=== PATIENT | female | born 1985 | race Caucasian/White ===

== ENCOUNTER 2016-12-20 12:36 | Emergency (ER) | payer MEDICAID ==
[~2016-12-20] VITALS: Ht 162.6 cm; Wt 162.7 kg
[2016-12-20 12:45] VITALS: BP 155/83
--- NOTE | 2016-12-20 13:13 | PHYS DOC ---
Adult General Chief Complaint Chief Complaint: LOWER EXT PAIN [facility] HPI 31-year-old female with a history of morbid obesity now presents to the emergency department complaining of left leg pain below the knee. She states she 's had onset of left leg discomfort today. He noticed it after walking up some steps. She denies joint pain. She states pain is on the proximal calf behind her knee as well as the distal calf above her ankle. Ankle is also painless with normal range of motion of knee ankle and foot patient denies new swelling or asymmetry. No skin changes. She has not had a history of Malone's cyst or knee problems previously. No prior history of blood clot. Patient states she is not on control and has no history of hypercoagulability or coagulopathy Review of Systems Review of Systems Constitutional: Denies fever or chills [] Eyes: Denies change in visual acuity, redness, or eye pain [] HENT: Denies nasal congestion or sore throat [] Respiratory: Denies cough or shortness of breath [] Cardiovascular: No additional information not addressed in HPI [] GI: Denies abdominal pain, nausea, vomiting, bloody stools or diarrhea [] : Denies dysuria or hematuria [] Musculoskeletal: Denies back pain or joint pain [] Integument: Denies rash or skin lesions [] Neurologic: Denies headache, focal weakness or sensory changes [] Endocrine: Denies polyuria or polydipsia [] Physical Exam Physical Exam Morbidly obese female no acute distress alert communicative and cooperative. Soft tissue tenderness left proximal calf posteriorly as well as left distal calf posteriorly. No asymmetry no skin changes no fluctuance or crepitus no erythema or warmth or cords. Neurovascularly intact lower extremity Constitutional: Well developed, well nourished, no acute distress, non-toxic appearance. [] HENT: Normocephalic, atraumatic, bilateral external ears normal, oropharynx moist, no oral exudates, nose normal. [] Eyes: , EOMI, conjunctiva normal, no discharge. [] Neck: Normal range of motion, no tenderness, supple, no stridor. [] Cardiovascular:Heart rate regular rhythm, no murmur [] Lungs & Thorax: Bilateral breath sounds clear to auscultation [] Abdomen: Bowel sounds normal, soft, no tenderness, no masses, no pulsatile masses. [] Skin: Warm, dry, no erythema, no rash. [] Back: No tenderness, no CVA tenderness. [] Extremities: As above ,no cyanosis, no clubbing, ROM intact, no edema. [] Neurologic: Alert and oriented X 3, normal motor function, normal sensory function, no focal deficits noted. [] Psychologic: Affect normal, judgement normal, mood normal. [] EKG EKG [] Radiology/Procedures Radiology/Procedures [] Course & Med Decision Making Course & Med Decision Making Pertinent Labs and Imaging studies reviewed. (See chart for details) Signs and symptoms consistent with lower extremity strain versus less likely possibility of DVT. Discussed possibility of ruptured Malone's cyst. We'll do ultrasound to rule out DVT. If unremarkable patient agrees with NSAIDs as an outpatient and follow up PCP for reevaluation and further workup and treatment as needed. Toradol given in ED. Patient comfortable appearing and ambulatory without difficulty no evidence of joint involvement Doppler negative for DVT. Patient will take NSAIDs as needed for pain and follow up PCP. [] Dragon Disclaimer Dragon Disclaimer This chart was dictated in whole or in part using Voice Recognition software in a busy, high-work load, and often noisy Emergency Department environment. It may contain unintended and wholly unrecognized errors or omissions. Departure Departure: Impression: Primary Impression: Lower extremity pain, left Additional Impression: Muscle strain of left lower leg Disposition: 01 HOME, SELF-CARE Condition: STABLE Patient Instructions: Muscle Strain Additional Instructions: Your history and physical findings today suggest that you have muscle strain of your left leg. Apply ice today and elevate whenever possible. Take 800 mg of ibuprofen every 6 hours if needed for soreness and follow up with your doctor in 1-2 days for reevaluation and to discuss further treatment as needed. Your ultrasound showed no blood clot in her leg. Avoid strenuous activity which causes pain until your symptoms have resolved. Return immediately for new severe or worsening symptoms Problem Qualifiers SHABNAM ESPINOZA MD Dec 20, 2016 13:13
[2016-12-20] MEDS ORDERED: KETOROLAC 60 MG/2 ML VIAL. IM ONE (13:50)
--- NOTE | 2016-12-20 14:54 | RAD ---
Left LOWER EXTREMITY VENOUS DOPPLER ULTRASOUND Clinical indication: Left calf pain x1 day. Comparison: None. Technique: Real-time grayscale, color-flow, and Doppler spectral waveform analysis of the deep vein system of the lower extremities is performed. Findings: Technically difficult exam due to patient body habitus. All visualized vein segments compress, augment, and demonstrate color flow normally. There is no evidence of thrombus. Right common femoral vein is also noted to be patent. There is a normal-appearing right groin lymph node. IMPRESSION: No evidence of deep vein thrombosis in the left lower extremity.
--- NOTE | 2016-12-20 15:09 | RAD ---
KNEE 3 VIEWS LEFT Clinical Indication: Knee pain x1 day. No injury. Comparison: None. Findings: There is no acute fracture or dislocation. The tricompartmental joint spaces are maintained. The patella is in anatomic position. There is no soft tissue abnormality. There is no joint effusion. There are 3 tiny well-corticated bodies posterior to the medial compartment. Cannot exclude loose joint bodies. IMPRESSION: No acute bone abnormality.
== END 2016-12-20 15:19 | disposition home or self-care (01) ==
LOC: ER 12:36
DX: S86.912A Strain of unspecified muscle(s) and tendon(s) at lower leg level, left leg, initial encounter (principal); X58.XXXA Exposure to other specified factors, initial encounter; Y93.01 Activity, walking, marching and hiking; Y99.8 Other external cause status; Y92.89 Other specified places as the place of occurrence of the external cause
CPT/HCPCS: 73562; 93971; 96372; 99284; J1885

== ENCOUNTER 2017-06-03 12:05 | Emergency (ER) | payer MEDICAID, OTHER ==
[~2017-06-03] VITALS: Ht 162.6 cm; Wt 161.0 kg
[2017-06-03] MEDS ORDERED: diazePAM 5 MG TABLET PO ONE (12:30)
[2017-06-03] MEDS ORDERED: CYCL-331 PO (13:18)
--- NOTE | 2017-06-03 13:19 | PHYS DOC ---
Past History Past Medical History: No Pertinent History Past Surgical History: , Tubal ligation Alcohol Use: Occasionally Drug Use: None Adult General Chief Complaint Chief Complaint: HIP PAIN HPI HPI Patient is a 32 year old F who presents with left-sided leg back and hip pain. Agnes states that she has had similar episodes in the past. She denies any injury or change in activity recently. She feels that her symptoms are worse with movement and when pressure is applied to the outside of her left leg. She states that the pain originates at the top of her hip bone and radiates down to just below her knee. She denies numbness tingling and weakness. She denies urinary or bowel irregularities. Review of Systems Review of Systems Constitutional: Denies fever or chills [] Eyes: Denies change in visual acuity, redness, or eye pain [] HENT: Denies nasal congestion or sore throat [] Respiratory: Denies cough or shortness of breath [] Cardiovascular: No additional information not addressed in HPI [] GI: Denies abdominal pain, nausea, vomiting, bloody stools or diarrhea [] : Denies dysuria or hematuria [] Musculoskeletal: Negative except history of present illness Integument: Denies rash or skin lesions [] Neurologic: Denies headache, focal weakness or sensory changes [] Endocrine: Denies polyuria or polydipsia [] All other systems were reviewed and found to be within normal limits, except as documented in this note. Family History Family History Noncontributory Current Medications Current Medications Current Medications Medications (Trade) Dose Ordered Sig/Ad Start Time Stop Time Status Last Admin Dose Admin Diazepam (Valium) 5 mg 1X ONCE 06/03/17 12:30 06/03/17 12:31 DC 06/03/17 12:24 5 MG Allergies Allergies Allergies Coded Allergies Type Severity Reaction Last Updated Verified Sulfa (Sulfonamide Antibiotics) Allergy Unknown 12/20/16 Yes Physical Exam Physical Exam Constitutional: Well developed, well nourished, no acute distress, non-toxic appearance. [] Morbid obesity HENT: Normocephalic, atraumatic, bilateral external ears normal, oropharynx moist, no oral exudates, nose normal. [] Eyes: EOMI, conjunctiva normal, no discharge. [] Neck: Normal range of motion, no tenderness, supple, no stridor. [] Cardiovascular:Heart rate regular rhythm, no murmur [] Lungs & Thorax: Bilateral breath sounds clear to auscultation [] Abdomen: Bowel sounds normal, soft, no tenderness, no masses, no pulsatile masses. [] Skin: Warm, dry, no erythema, no rash. [] Back: No tenderness, no CVA tenderness. [] Extremities: Pain was reproducible with palpation and stretching of the IT band on the left lateral leg. Normal range of motion of the hip and knee were noted. No bony tenderness was noted Neurologic: Alert and oriented X 3, normal motor function, normal sensory function, no focal deficits noted. [] Psychologic: Affect normal, judgement normal, mood normal. [] Current Patient Data Vital Signs Vital Signs Date Time Temp Pulse Resp B/P (MAP) Pulse Ox O2 Delivery O2 Flow Rate FiO2 06/03/17 12:10 97.9 80 20 100 Room Air EKG EKG [] Radiology/Procedures Radiology/Procedures Imaging was declined Course & Med Decision Making Course & Med Decision Making Pertinent Labs and Imaging studies reviewed. (See chart for details) [] Dragon Disclaimer Dragon Disclaimer This electronic medical record was generated, in whole or in part, using a voice recognition dictation system. Departure Departure: Impression: Primary Impression: IT band syndrome Disposition: 01 HOME, SELF-CARE Condition: STABLE Referrals: ROBERT SANDOVAL MD (PCP) Patient Instructions: Muscle Cramps Additional Instructions: Agnes was seen in the emergency department for hip pain. No emergency medical condition was found on history or physical exam. Her symptoms are most consistent with IT band syndrome, or muscle spasm. She was given a prescription for muscle relaxer and encouraged to stretch. She is advised follow-up with her primary care doctor in the next 3-5 days for further management of her ongoing medical problem Scripts Cyclobenzaprine Hcl (CYCLOBENZAPRINE HCL) 10 Mg Tablet 1 TAB PO TID for 3 Days, #9 TAB Prov: CONNIE ARVIZU MD 06/03/17 Problem Qualifiers Primary Impression: IT band syndrome Laterality: left Qualified Codes: M76.32 - Iliotibial band syndrome, left leg CONNIE ARVIZU MD Jun 03, 2017 13:19
[2017-06-03 13:33] VITALS: BP 136/72
== END 2017-06-03 13:47 | disposition home or self-care (01) ==
LOC: ER 12:05
DX: M76.32 Iliotibial band syndrome, left leg (principal); M25.552 Pain in left hip; Z88.2 Allergy status to sulfonamides
CPT/HCPCS: 99283

== ENCOUNTER → 2017-07-29 | Outpatient (CLI) | payer OTHER ==
[~2017-07-29] MED LIST: CYCL-331 PO; GABA-586 PO; PRED20TA PO
--- NOTE | 2017-07-29 15:33 | RAD ---
Lumbar spine, 5 views, 07/29/2017: History: Radiculopathy The lumbar vertebral heights are well-maintained. There is mild narrowing of the L4-5 and L5-S1 disc spaces. There are mild scattered marginal spurs in the lumbar and lower thoracic spine. No fracture or dislocation is identified. The paraspinous soft tissues are unremarkable. IMPRESSION: 1. Mild scattered degenerative changes. 2. No acute bony abnormality is detected.
== END | disposition home or self-care (01) ==
LOC: DXRAD 14:53
PROVIDERS: ATTEND Psychiatry & Neurology Neurology
DX: M54.16 Radiculopathy, lumbar region (principal); M79.605 Pain in left leg; M47.896 Other spondylosis, lumbar region; F17.200 Nicotine dependence, unspecified, uncomplicated
CPT/HCPCS: 72110

== ENCOUNTER 2017-08-02 16:12 | Emergency (ER) | payer OTHER ==
[~2017-08-02] VITALS: Ht 162.6 cm; Wt 163.3 kg
[~2017-08-02 16:12] MED LIST changes: -GABA-586 PO; -PRED20TA PO
--- NOTE | 2017-08-02 16:16 | PHYS DOC ---
General Chief Complaint: left hip and leg pain Stated Complaint: LOWER EXTREMITY PAIN Time Seen by MD: 16:14 Source: patient, old records Exam Limitations: no limitations Problems: History of Present Illness Initial Comments Patient is a 32-year-old female who comes to the ED complaining of left-sided low back hip and leg discomfort. Patient has been seen for this condition several times in the past and this ED, additionally she saw her PCP Dr. Sandoval a few weeks ago and was prescribed Naprosyn. She was referred to Dr. Gallegos neurology saw him last week. She reports that he attributed her symptoms to her weight problems and advised her to lose weight and prescribed Flexeril. Patient states that none of these medications have been helping and she is getting very frustrated. She denies any new trauma no leg weakness, no saddle anesthesia or bowel/bladder symptoms. She says she's had chronic issues with left-sided low back and hip pain with left leg radiation. She says that now her left leg tingles and benavides at times and she noticed these symptoms more with certain positions. She denies any midline or bony pain, no flank pain or urinary symptoms, no abdominal pain and no right leg symptoms. PATIENT: ZHEN VENTURA ACCOUNT: [id number] : 1985 LOCATION: [facility] AGE: 32 SEX: F EXAM STATUS: REG CLI ORD. PHYSICIAN: TIFFANY GALLEGOS MD REASON: LEFT LEG PAIN, RADICULOPATHY PROCEDURE: LUMBAR SPINE MIN 4V Lumbar spine, 5 views, 07/29/2017: History: Radiculopathy The lumbar vertebral heights are well-maintained. There is mild narrowing of the L4-5 and L5-S1 disc spaces. There are mild scattered marginal spurs in the lumbar and lower thoracic spine. No fracture or dislocation is identified. The paraspinous soft tissues are unremarkable. IMPRESSION: 1. Mild scattered degenerative changes. 2. No acute bony abnormality is detected. DICTATED AND SIGNED BY: JOY AGUIRRE MD DATE: 07/29/17 1529 CC: TIFFANY GALLEGOS MD; ROBERT SANDOVAL MD ~ Onset: other Severity: severe Pain/Injury Location: left leg Method of Injury: other Modifying Factors: worse with movement, improves with pain medication, improves with rest Allergies: Coded Allergies: Sulfa (Sulfonamide Antibiotics) (Verified Allergy, Unknown, 12/20/16) Past Medical History Medical History: other (morbid obesity, chronic back and leg pain) Surgical History: noncontributory Social History Smoker: cigarettes Alcohol: occasionally Drugs: none Review of Systems Constitutional: denies chills, denies diaphoresis, denies fever Respiratory: denies cough, denies shortness of breath Cardiovascular: denies chest pain, denies palpitations Gastrointestinal: denies nausea, denies vomiting Musculoskeletal: see HPI Psychiatric/Neurological: see HPI Physical Exam General Appearance: mild distress, obese Neck: non-tender, supple Cardiovascular/Respiratory: normal peripheral pulses, no respiratory distress Back: no CVA tenderness, no vertebral tenderness Hips: bilateral hip non-tender, bilateral hip normal inspection, bilateral hip no evidence of injury Legs: bilateral leg non-tender, bilateral leg normal range of motion, bilateral leg no evidence of injury Neurologic/Tendon: normal sensation, normal motor functions, normal tendon functions, responds to pain, no evidence tendon injury, other (DTRs/strength/ sensory equal and intact bilateral lower extremities, negative straight leg raise bilaterally. Bilateral lower extremity 2+ pitting edema which is symmetric there is no erythema or subcutaneous palpable nodularity or tenderness.) Psychiatric: alert, oriented x 3 Skin: normal color, warm/dry Orders, Labs, Meds No emergent condition noted. I advised the patient to lose weight and stop smoking. Trial of prednisone and Neurontin with close PCP follow-up. Consideration of outpatient MRI evaluation if symptoms do not improve. Discussed signs and symptoms to monitor as well as indications for urgent return to the department. Her questions were answered to her satisfaction and she left the department in stable condition. Departure Time of Disposition: 17:12 Disposition: 01 HOME, SELF-CARE Diagnosis: lumbar radiculopathy Condition: GOOD Patient Instructions: Lumbosacral Radiculopathy, Smoking Cessation, Tips For Success Additional Instructions: Activity as tolerated. Stop smoking seek medical assistance if necessary. Discontinue Naprosyn while taking prednisone. Prescription: Prednisone, Neurontin Follow-up with your doctor in 2-3 days for recheck and discuss further outpatient evaluation as needed. Return to ED with new or changing symptoms. RACHNA BUTTS DO Aug 02, 2017 16:16
[2017-08-02] MEDS ORDERED: PRED20TA PO (17:12)
[2017-08-02] MEDS ORDERED: GABA-586 PO (17:12)
[2017-08-02 17:20] VITALS: BP 137/108
== END 2017-08-02 17:25 | disposition home or self-care (01) ==
LOC: ER 16:12
DX: M54.16 Radiculopathy, lumbar region (principal); M25.552 Pain in left hip; E66.01 Morbid (severe) obesity due to excess calories; G89.29 Other chronic pain; F17.210 Nicotine dependence, cigarettes, uncomplicated; Z68.44 Body mass index [BMI] 60.0-69.9, adult; Z88.2 Allergy status to sulfonamides
CPT/HCPCS: 99283

== ENCOUNTER 2018-04-01 22:19 | Emergency (ER) | payer OTHER ==
[~2018-04-01] VITALS: Ht 162.6 cm; Wt 156.5 kg
[~2018-04-01 22:19] MED LIST changes: +GABA-586 PO; +PRED20TA PO
--- NOTE | 2018-04-01 22:29 | ED.ADGEN ---
Past History Past Medical History: Other Past Surgical History: , Tubal ligation Alcohol Use: Occasionally Drug Use: None Adult General Chief Complaint Chief Complaint ".. I ve been coughing my brains out... fever, chills,... runny nose... My daughter been sick.. with could... I do smoke.. I cough to the point I almost pass out..." HPI HPI Patient is a 33 year old female who presents with hx cough and productive sputum. Patient has been around her daughter has recently been sick with upper respiratory infection. No recent travel. No specific ill contacts. Patient does smoke. No history immunosuppression. Review of Systems Review of Systems Constitutional: History of fever or chills [] Eyes: Denies change in visual acuity, redness, or eye pain [] HENT: History of nasal congestion Respiratory: History of cough and wheezing Cardiovascular: No additional information not addressed in HPI [] GI: Denies abdominal pain, nausea, vomiting, bloody stools or diarrhea [] : Denies dysuria or hematuria [] Musculoskeletal: Denies back pain or joint pain [] Integument: Denies rash or skin lesions [] Neurologic: Denies headache, focal weakness or sensory changes [] Endocrine: Denies polyuria or polydipsia [] All other systems were reviewed and found to be within normal limits, except as documented in this note. Family History Family History Daughter recent sick with an upper respiratory infection Current Medications Current Medications Current Medications Medications (Trade) Dose Ordered Sig/Ad Start Time Stop Time Status Last Admin Dose Admin Albuterol Sulfate (Ventolin Hfa Inhaler) 60 puff STK-MED ONCE 04/01/18 23:06 04/01/18 23:17 DC Azithromycin (Zithromax) 250 mg STK-MED ONCE 04/01/18 23:06 04/01/18 23:17 DC Prednisone (Prednisone) 20 mg STK-MED ONCE 04/01/18 23:06 04/01/18 23:17 DC See nursing for home meds Allergies Allergies Allergies Coded Allergies Type Severity Reaction Last Updated Verified Sulfa (Sulfonamide Antibiotics) Allergy Unknown 12/20/16 Yes Physical Exam Physical Exam Constitutional: Moderate acute distress, non-toxic appearance. [] HENT: Normocephalic, atraumatic, bilateral external ears normal, oropharynx moist, injected pharynx no oral exudates, nose swollen turbinates and rhinorrhea Eyes: PERRLA, EOMI, conjunctiva normal, no discharge. [] Neck: Normal range of motion, no tenderness, supple, no stridor. [] Cardiovascular:Heart rate regular rhythm, no murmur [] Lungs & Thorax: Bilateral breath sounds equal at apex with scattered wheezing on auscultation [] Abdomen: Bowel sounds normal, soft, no tenderness, no masses, no pulsatile masses. Obese. Old surgery scars. Skin: Warm, dry, no erythema, no rash. [] Back: No tenderness, no CVA tenderness. [] Extremities: No tenderness, no cyanosis, no clubbing, ROM intact, ankle edema. [ ] Neurologic: Alert and oriented X 3, normal motor function, normal sensory function, no focal deficits noted. [] Psychologic: Affect normal, judgement normal, mood normal. [] Current Patient Data Vital Signs Vital Signs Date Time Temp Pulse Resp B/P (MAP) Pulse Ox O2 Delivery O2 Flow Rate FiO2 04/01/18 22:36 98.5 90 20 96 Room Air EKG EKG [] Radiology/Procedures Radiology/Procedures [] Course & Med Decision Making Course & Med Decision Making Pertinent Labs and Imaging studies reviewed. (See chart for details). Patient is stop smoking. Patient take Zithromax 250 mg a day and prednisone 50 mg a day for the next 5 days. Use MDI 2 puffs 4 times a day. Patient follow-up primary care. Patient return if any concerns. Patient use Benadryl 20/5/50 milligrams 4 times a day for nasal congestion, cough and drainage. [] Final Impression Final Impression 1. Bronchitis 2. Upper Respiratory Infection 3. Tobacco Use[] Dragon Disclaimer Dragon Disclaimer This electronic medical record was generated, in whole or in part, using a voice recognition dictation system. ELOY GALAN MD Apr 01, 2018 22:29
[2018-04-01 22:36] VITALS: BP 150/87
[2018-04-01] MEDS ORDERED: predniSONE 20 MG TABLET ONE (23:06)
[2018-04-01] MEDS ORDERED: AZITHROMYCIN 250 MG TABLET. ONE (23:06)
[2018-04-01] MEDS ORDERED: ALBUTEROL SULFATE 8GM INHALER. ONE (23:06)
[2018-04-01] MEDS ORDERED: PRED50TA PO (23:07)
[2018-04-01] MEDS ORDERED: AZIT250T PO (23:07)
[2018-04-01] MEDS ORDERED: ALBUTEROL SULFATE 8GM INHALER. INH ONE (23:15)
[2018-04-01] MEDS ORDERED: AZITHROMYCIN 250 MG TABLET. PO ONE (23:15)
[2018-04-01] MEDS ORDERED: predniSONE 20 MG TABLET PO ONE (23:15)
== END 2018-04-01 23:15 | disposition home or self-care (01) ==
LOC: ER 22:19
DX: J06.9 Acute upper respiratory infection, unspecified (principal); J40 Bronchitis, not specified as acute or chronic; Z72.0 Tobacco use; Z88.2 Allergy status to sulfonamides
CPT/HCPCS: 94640; 99283; J0456; J7512; 94664

== ENCOUNTER 2019-03-13 17:07 | Emergency (ER) | payer SELFPAY ==
[~2019-03-13] VITALS: Ht 162.6 cm; Wt 162.7 kg
[~2019-03-13 17:07] MED LIST changes: +AZIT250T PO; +PRED50TA PO
[2019-03-13 17:15] VITALS: BP 149/75
--- NOTE | 2019-03-13 17:46 | ED.ADGEN ---
Past History Past Medical History: No Pertinent History Past Surgical History: , Tubal ligation Additional Smoking Information: PACK/DAY Alcohol Use: Occasionally Drug Use: None Adult General Chief Complaint Chief Complaint ".. 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 it hurts still when I extend.. it...." HPI HPI Patient is a 33 year old female who presents with above hx and complaints of Lt. shoulder injury. Distal neurovascular intact. Has pain upon extension of left arm. And with resistance. Does have sensation in deltoid area. He is right-hand dominant. No recent travel. No history immunosuppression. Normally healthy. Review of Systems Review of Systems Constitutional: Denies fever or chills [] Eyes: Denies change in visual acuity, redness, or eye pain [] HENT: Denies nasal congestion or sore throat [] Respiratory: Denies cough or shortness of breath [] Cardiovascular: No additional information not addressed in HPI [] GI: Denies abdominal pain, nausea, vomiting, bloody stools or diarrhea [] : Denies dysuria or hematuria [] Musculoskeletal: Denies back pain or joint pain []except complaints and left shoulder as per history of present illness Integument: Denies rash or skin lesions [] Neurologic: Denies headache, focal weakness or sensory changes [] Endocrine: Denies polyuria or polydipsia [] All other systems were reviewed and found to be within normal limits, except as documented in this note. Family History Family History Noncontributory Current Medications Current Medications Current Medications Medications (Trade) Dose Ordered Sig/[facility] Start Time Stop Time Status Last Admin Dose Admin Ketorolac Tromethamine (Toradol Im) 60 mg 1X ONCE 03/13/19 18:15 03/13/19 18:16 DC 03/13/19 18:15 60 MG Allergies Allergies Allergies Coded Allergies Type Severity Reaction Last Updated Verified Sulfa (Sulfonamide Antibiotics) Allergy Unknown 12/20/16 Yes Physical Exam Physical Exam Constitutional: Moderate acute distress, non-toxic appearance. [] HENT: Normocephalic, atraumatic, bilateral external ears normal, oropharynx moist, no oral exudates, nose normal. [] Eyes: PERRLA, EOMI, conjunctiva normal, no discharge. [] Neck: Normal range of motion, no tenderness, supple, no stridor. [] Cardiovascular:Heart rate regular rhythm, no murmur [] Lungs & Thorax: Bilateral breath sounds equal at apex auscultation [] Abdomen: Bowel sounds normal, soft, no tenderness, no masses, no pulsatile masses. [] Old surgery scar. Obese. Skin: Warm, dry, no erythema, no rash. [] Back: No tenderness, no CVA tenderness. [] Extremities: No tenderness, no cyanosis, no clubbing, ROM intact, no edema. []Except Findings in left shoulder as per history of present illness Neurologic: Alert and oriented X 3, normal motor function, normal sensory function, no focal deficits noted. [] Psychologic: Affect anxious, judgement normal, mood normal. [] Current Patient Data Vital Signs Vital Signs Date Time Temp Pulse Resp B/P (MAP) Pulse Ox O2 Delivery O2 Flow Rate FiO2 03/13/19 17:15 98.6 96 20 95 Room Air EKG EKG [] Radiology/Procedures Radiology/Procedures [][address] [id number] IMAGING REPORT Signed PATIENT: ZHEN VENTURA DACCOUNT: [id number] : 1985 LOCATION: ER AGE: 33 SEX: F EXAM STATUS: DEP ER ORD. PHYSICIAN: ELOY GALAN MD REASON: injury- lifting PROCEDURE: SHOULDER 2+V LEFT EXAM: 3 views Left Shoulder DATE: 03/13/2019 6:00 PM INDICATION: Left shoulder injury, pain, lifting injury COMPARISON: No Prior FINDINGS: There is no evidence for acute fracture or dislocation. AC joint is congruent. Humeral head is not high riding. IMPRESSION: 1. No acute fracture or dislocation. Electronically signed by: Archie Monson MD (03/14/2019 7:52 AM) [facility] DICTATED AND SIGNED BY: ARCHIE MONSON MD DATE: 03/14/19 0752 CC: ELOY GALAN MD; PCP,NO ~ Course & Med Decision Making Course & Med Decision Making Pertinent Labs and Imaging studies reviewed. (See chart for details) Ice packs as needed for the next 3 days. Tylenol and ibuprofen for pain. Follow- up primary care. Follow-up workmen comp. Return if any concerns. [] Final Impression Final Impression 1. Rotator Cuff Injury Lt shoulder-[] Dragon Disclaimer Dragon Disclaimer This electronic medical record was generated, in whole or in part, using a voice recognition dictation system. Dragon Disclaimer This chart was dictated in whole or in part using Voice Recognition software in a busy, high-work load, and often noisy Emergency Department environment. It may contain unintended and wholly unrecognized errors or omissions. ELOY GALAN MD Mar 13, 2019 17:46
[2019-03-13] MEDS ORDERED: HYDR-1179 PO (17:59)
[2019-03-13] MEDS ORDERED: KETOROLAC 60 MG/2 ML VIAL. IM ONE (18:15)
--- NOTE | 2019-03-14 07:55 | RAD ---
EXAM: 3 views Left Shoulder DATE: 03/13/2019 6:00 PM INDICATION: Left shoulder injury, pain, lifting injury COMPARISON: No Prior FINDINGS: There is no evidence for acute fracture or dislocation. AC joint is congruent. Humeral head is not high riding. IMPRESSION: 1. No acute fracture or dislocation. Electronically signed by: Archie Monson MD (03/14/2019 7:52 AM) [facility]
== END 2019-03-13 18:52 | disposition home or self-care (01) ==
LOC: ER 17:07
DX: S46.002A Unspecified injury of muscle(s) and tendon(s) of the rotator cuff of left shoulder, initial encounter (principal); F17.200 Nicotine dependence, unspecified, uncomplicated; Z88.2 Allergy status to sulfonamides; X50.9XXA Other and unspecified overexertion or strenuous movements or postures, initial encounter; Y93.89 Activity, other specified; Y92.89 Other specified places as the place of occurrence of the external cause; Y99.0 Civilian activity done for income or pay
CPT/HCPCS: 73030; 96372; 99284; J1885

== ENCOUNTER 2021-03-20 19:33 | Emergency (ER) | payer BC ==
[~2021-03-20] VITALS: Ht 162.6 cm; Wt 172.2 kg
[~2021-03-20 19:33] MED LIST changes: +HYDR-1179 PO
[2021-03-20] MEDS ORDERED: amLODIPine BESYLATE 5 MG TABLET PO ONE (20:15)
[2021-03-20] MEDS ORDERED: ALBUTEROL SULFATE 8GM INHALER. INH ONE (20:15)
[2021-03-20] MEDS ORDERED: AMLO-186 PO (20:15)
--- NOTE | 2021-03-20 20:16 | PHYS DOC ---
Past History Past Medical History: No Pertinent History Past Surgical History: , Tubal ligation Alcohol Use: Occasionally Drug Use: None Adult General Chief Complaint Chief Complaint: HYPERTENSION HPI HPI Patient is a 36-year-old female with a past medical history significant for obesity, hypertension and smoking who presents with a chief complaint of hypertension and cough. States she takes lisinopril daily for hypertension does not seem to be keeping it down low enough and needs to follow-up with her primary care physician. States that she has had a dry cough for several months with no fevers, chest pain, shortness of breath, abdominal pain, nausea, vomiting. Denies any recent illnesses, known ill contacts or travel. States she is a current smoker. Review of Systems Review of Systems Review of systems otherwise unremarkable except noted in HPI Allergies Allergies Allergies Coded Allergies Type Severity Reaction Last Updated Verified Sulfa (Sulfonamide Antibiotics) Allergy Unknown 12/20/16 Yes Physical Exam Physical Exam Constitutional: Well developed, well nourished, no acute distress, non-toxic appearance. [] HENT: Normocephalic, atraumatic, bilateral external ears normal, oropharynx moist, no oral exudates, nose normal. [] Eyes: conjunctiva normal, no discharge. [] Neck: Normal range of motion, no tenderness, supple, no stridor. [] Cardiovascular:Heart rate regular rhythm, no murmur [] Lungs & Thorax: Bilateral lungs with good air movement, very mild scant rhonchi, no wheezing in no increased work of breathing Abdomen: Bowel sounds normal, soft, no tenderness, no masses, no pulsatile masses. [] Skin: Warm, dry, no erythema, no rash. [] Extremities: No tenderness, ROM intact, no edema. [] Neurologic: Alert and oriented X 3,no focal deficits noted. [] Psychologic: Affect normal, judgement normal, mood normal. [] EKG EKG [] Radiology/Procedures Radiology/Procedures [] Heart Score C/O Chest Pain: No Risk Factors: Risk Factors: DM, Current or recent (<one month) smoker, HTN, HLP, family history of CAD, obesity. Risk Scores: Risk Factors: DM, Current or recent (<one month) smoker, HTN, HLP, family history of CAD, obesity. Course & Med Decision Making Course & Med Decision Making Patient is a 36-year-old female with a past medical history of obesity, hypertension, and current smoker who presents with cough and hypertension Blood pressure initially here in the ED was 142/106 so mild elevation. Physical exam noted above. Discussed cough and the adverse effects of lisinopril in advised her to talk to her doctor about this as that is one of the major side effects of lisinopril. Also advised to cease smoking cigarettes as this could increase cough. States she has been out of her albuterol for a while and was given a new albuterol inhaler with spacer and instructions on proper use. Started on low-dose amlodipine due to patient's concern for side effects of lisinopril. Advised to call her primary care physician in the morning to update on ED visit and set up a follow-up to discuss these things. Gave return precautions to the ED. Patient grateful, verbalized understanding and agreed with plan of discharge. [] Dragon Disclaimer Dragon Disclaimer This electronic medical record was generated, in whole or in part, using a voice recognition dictation system. Departure Departure: Impression: Primary Impression: Hypertension Additional Impressions: Cough due to CHARLI inhibitor Cough Disposition: 01 HOME / SELF CARE / HOMELESS Condition: GOOD Referrals: ROBERT SANDOVAL MD (PCP) Patient Instructions: Cough, Adult, DASH Diet, Hypertension Additional Instructions: Thank you for coming into the emergency department tonight and allowing us to take care of you. Please read all of the attached information carefully to go back over things we discussed. Please take the blood pressure medicine given to you as prescribed. Please call your primary care physician first thing in the morning to update on ED visit and set up a follow-up visit as soon as possible to discuss your lisinopril and cough, hypertension management and cessation of smoking. Please come back to the ED with new or concerning symptoms as discussed. Scripts Amlodipine Besylate (AMLODIPINE BESYLATE) 5 Mg Tablet 1 TAB PO DAILY for HTN for 10 Days, #10 TAB 5 Refills Prov: TANIA ROPER MD 03/20/21 Problem Qualifiers TANIA ROPER MD Mar 20, 2021 20:16
[2021-03-20 20:33] VITALS: BP 143/89
== END 2021-03-20 21:20 | disposition home or self-care (01) ==
LOC: ER 19:33
DX: I10 Essential (primary) hypertension (principal); R05 Cough; Z88.2 Allergy status to sulfonamides; Z98.51 Tubal ligation status
CPT/HCPCS: 94640; 94664; 99283-25

== ENCOUNTER 2021-09-14 17:01 | Emergency (ER) | payer BC ==
[~2021-09-14] VITALS: Ht 162.6 cm; Wt 172.2 kg
[~2021-09-14 17:01] MED LIST changes: +AMLO-186 PO; -CYCL-331 PO; +CYCL10TA19 PO
[2021-09-14 17:20] VITALS: BP 143/89
[2021-09-14] MEDS ORDERED: ORPH-16 PO (17:22)
[2021-09-14] MEDS ORDERED: HYDR-2155 PO (17:22)
--- NOTE | 2021-09-14 17:23 | PHYS DOC ---
Past History Past Medical History: Hypertension Past Surgical History: , Tubal ligation Smoking: Cigarettes Alcohol Use: Occasionally Drug Use: None General Adult EDM: Chief Complaint: Left shoulder pain HPI: HPI: 36-year-old female presents with report of left shoulder pain and numbness down her arm which has been ongoing upon waking this morning. 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 Patient reports pain worse with turning her head to the right. Denies any trauma. Patient does report she is been taking ibuprofen and Flexeril for the pain with minimal relief. Denies fever or chills. Denies limb swelling. Review of Systems: Review of Systems: Constitutional: Denies fever or chills Eyes: Denies redness or eye pain HENT: Denies nasal congestion or sore throat Respiratory: Denies cough or shortness of breath Cardiovascular: Denies chest pain or palpitations GI: Denies abdominal pain, nausea, or vomiting : Denies dysuria or hematuria Musculoskeletal: Denies neck pain; reports left shoulder and upper arm pain Integument: Denies rash or skin lesions Neurologic: Denies headache or focal weakness; reports paresthesias to left upper extremity Complete systems were reviewed and found to be within normal limits, except as documented in this note. Current Medications: Current Meds: Current Medications Medications (Trade) Dose Ordered Sig/Ad Start Time Stop Time Status Last Admin Dose Admin Acetaminophen/ Hydrocodone Bitart (Lortab 5/325) 1 tab 1X ONCE 09/14/21 17:30 09/14/21 17:31 UNV Orphenadrine Citrate (Norflex) 60 mg 1X ONCE 09/14/21 17:30 09/14/21 17:31 UNV Allergies: Allergies: Allergies Coded Allergies Type Severity Reaction Last Updated Verified Sulfa (Sulfonamide Antibiotics) Allergy Unknown 12/20/16 Yes Physical Exam: PE: Constitutional: Well developed, morbidly obese, uncomfortable, non-toxic appearance HENT: Normocephalic, atraumatic Eyes: PERRL, EOMI, conjunctiva normal, no discharge Neck: Normal range of motion, no midline tenderness, supple Lungs & Thorax: No respiratory distress, equal chest rise and fall Skin: Warm, dry, no erythema, no rash Back: Nomidline tenderness, no CVA tenderness Extremities: Left glenohumeral tenderness, ROM limited due to discomfort, no edema Neurologic: Alert and oriented X 3, normal motor function, normal sensory functi on, no focal deficits noted Psychologic: Affect normal, judgment normal EKG: EKG: [] Radiology/Procedures: Radiology/Procedures: [] Heart Score: C/O Chest Pain: N/A Course & Med Decision Making: Course & Med Decision Making Nontoxic patient presents with left shoulder pain with associated paresthesias. Reports started this morning upon waking. Patient does report moving a patient from wheelchair last night. Limb neurovascular intact. Concern for possible nerve involvement. Patient advised would need to follow with pain management with outpatient evaluation with possible MRI and/or EMGs. Symptomatic treatment provided. Patient stable for discharge with outpatient follow-up with PCP/pain management. Pain management referral provided. Discussed findings and plan with patient and spouse, who acknowledge understanding and agreement. [place]ilon Disclaimer: Ambreen Disclaimer: This electronic medical record was generated, in whole or in part, using a voice recognition dictation system. Departure Departure: Impression: Primary Impression: Shoulder pain, left Qualified Codes: M25.512 - Pain in left shoulder Additional Impression: Paresthesia of left arm Disposition: HOME / SELF CARE / HOMELESS Condition: STABLE Referrals: ROBERT SANDOVAL MD (PCP) Patient Instructions: Paresthesia, [id number], Shoulder Pain, [id number] Additional Instructions: Ice area of discomfort 20 minutes on then leave off next 20 minutes. Repeat several times daily for the next few days. May also use [id number] ibuprofen as needed. Follow closely with picture painter, Dr. Schwab, for further evaluation and treatment. [id number] [facility], [address] [place] [address] Scripts Orphenadrine Citrate (ORPHENADRINE CITRATE) 100 Mg Tablet.er 1 TAB PO BID PRN for MUSCLE PAIN, #14 TAB 0 Refills Prov: SHABNAM GARCIA DO 09/14/21 Hydrocodone Bit/Acetaminophen (HYDROCODONE-APAP 5-325 ) 1 Each Tablet 0.5 TAB PO PRN Q6HRS PRN for PAIN, #10 TAB 0 Refills Prov: SHABNAM GARCIA DO 09/14/21 SHABNAM GARCIA DO Sep 14, 2021 17:23
[2021-09-14] MEDS ORDERED: HYDROcodone/APAP 5/325MG 1 TAB TABLET PO ONE (17:30)
[2021-09-14] MEDS ORDERED: ORPHENADRINE CITRATE 60 MG/2 ML VIAL. IM ONE (17:30)
== END 2021-09-14 17:51 | disposition home or self-care (01) ==
LOC: ER 17:01
DX: M25.512 Pain in left shoulder (principal); R20.2 Paresthesia of skin; M79.602 Pain in left arm; I10 Essential (primary) hypertension; F17.210 Nicotine dependence, cigarettes, uncomplicated; Z88.2 Allergy status to sulfonamides
CPT/HCPCS: 96372; 99283; J2360

== ENCOUNTER 2021-10-11 22:06 | Emergency (ER) | payer SELFPAY ==
[~2021-10-11] VITALS: Ht 162.6 cm; Wt 178.0 kg
[~2021-10-11 22:06] MED LIST changes: +HYDR-2155 PO; +ORPH-16 PO
--- NOTE | 2021-10-11 22:12 | PHYS DOC ---
Past History Past Medical History: Hypertension Past Surgical History: , Tubal ligation Smoking: Cigarettes Alcohol Use: Occasionally Drug Use: None Adult General HPI HPI Patient is a 36-year-old female who presents with a chief complaint of blood in the stool, stated it was bright red and noticed on the toilet paper this morning. Denies any pain with it. Denies any recent travels, traumas, illness, fever, chest pain, shortness of breath, abdominal pain, nausea, vomiting, diarrhea. Denies any dysuria or hematuria. Review of Systems Review of Systems Review of systems otherwise unremarkable except noted in HPI Allergies Allergies Allergies Coded Allergies Type Severity Reaction Last Updated Verified Sulfa (Sulfonamide Antibiotics) Allergy Unknown 12/20/16 Yes Physical Exam Physical Exam Constitutional: Well developed, well nourished, no acute distress, non-toxic appearance. [] HENT: Normocephalic, atraumatic, bilateral external ears normal, oropharynx moist, no oral exudates, nose normal. [] Eyes: PERRLA, EOMI, conjunctiva normal, no discharge. [] Neck: Normal range of motion, no tenderness, supple, no stridor. [] Cardiovascular:Heart rate regular rhythm, no murmur [] Lungs & Thorax: Bilateral breath sounds clear to auscultation [] Abdomen: Bowel sounds normal, soft, no tenderness, no masses, no pulsatile mas ses. : Internal and external hemorrhoid noted with a tiny amount of bright red blood, and no tenderness, no thrombosis [] Skin: Warm, dry, no erythema, no rash. [] Back: No tenderness, no CVA tenderness. [] Neurologic: Alert and oriented X 3, normal motor function, normal sensory function, no focal deficits noted. [] Psychologic: Affect normal, judgement normal, mood normal. [] EKG EKG [] Radiology/Procedures Radiology/Procedures [] Heart Score C/O Chest Pain: No Risk Factors: Risk Factors: DM, Current or recent (<one month) smoker, HTN, HLP, family history of CAD, obesity. Risk Scores: Risk Factors: DM, Current or recent (<one month) smoker, HTN, HLP, family history of CAD, obesity. Course & Med Decision Making Course & Med Decision Making Patient is a 36-year-old female presents with a chief complaint of blood in the stool Vital signs notable for hypertension. Physical exam noted above. Given steroid suppository for hemorrhoids. Discussed symptom treatment at home. Advised to follow-up on Wednesday with primary care physician. Gave return precautions to the ED Patient grateful, verbalized understanding and agreed with plan of discharge. [] Dragon Disclaimer Dragon Disclaimer This electronic medical record was generated, in whole or in part, using a voice recognition dictation system. Departure Departure: Impression: Primary Impression: Hemorrhoids Disposition: HOME / SELF CARE / HOMELESS Condition: STABLE Referrals: ROBERT SANDOVAL MD (PCP) Patient Instructions: Hemorrhoids Additional Instructions: Thank you for coming into the emergency department tonight and allowing us to take care of you. Please read the attached information carefully to go over things we discussed. Please stop at the pharmacy to get [id number] treatments for hemorrhoids such as the steroids, and sitz bath. Please also use a stool softener as we discussed and eat a light clear diet over the next couple of days. Please follow-up with your primary care physician on Wednesday to update on your ED visit and set up a follow-up. Please come back with new or co ncerning symptoms as discussed. TANIA ROPER MD Oct 11, 2021 22:12
[2021-10-11 22:15] VITALS: BP 154/112
== END 2021-10-11 22:57 | disposition home or self-care (01) ==
LOC: ER 22:06
DX: K64.4 Residual hemorrhoidal skin tags (principal); I10 Essential (primary) hypertension; F17.210 Nicotine dependence, cigarettes, uncomplicated; Z88.2 Allergy status to sulfonamides
CPT/HCPCS: 99282